=== PATIENT | male | born 2000 | race Caucasian/White ===

== ENCOUNTER 2019-02-07 00:12 | Emergency (ER) | payer MEDICAID ==
[~2019-02-07] VITALS: Ht 170.2 cm; Wt 65.5 kg
[2019-02-07 00:32] VITALS: Ht 170.2 cm; Wt 65.5 kg
--- NOTE | 2019-02-07 01:57 | ERD ---
ER Documentation Chief Complaint Chief Complaint STATES SUICIDAL IDEATION BY CUTTING SELF HPI The patient is a 18-year-old male, presenting to the ER because he has suicidal ideation, plans to cut himself. He denies auditory/visual hallucination, homicidal ideation, denies headache, neck pain, chest pain, dyspnea, abdominal pain, vomiting, dysuria, diarrhea. He does not smoke nor drink or use illicit drug Past medical history: Schizophrenia, ADHD Past surgical history: None ROS All systems reviewed and are negative except as per history of present illness. Allergies Allergies: Coded Allergies: No Known Allergy (Unverified , 02/07/19) Physical Exam Vitals Vital Signs Date Temp Pulse Resp B/P (MAP) Pulse Ox O2 O2 Flow FiO2 Time Delivery Rate 02/07/19 98.2 82 19 107/73 99 02:34 (84) 02/07/19 98.2 69 19 107/ 99 00:32 (84) Physical Exam Const: No acute distress. Head: Atraumatic. Eyes: Normal Conjunctiva. ENT: Normal External Ears, Nose and Mouth. Neck: Full range of motion. No meningismus. Resp: Clear to auscultation bilaterally. Cardio: Regular rate and rhythm. Abd: Soft, non distended, normal bowel sounds, non tender. Skin: No petechiae or rashes. Back: No midline or flank tenderness. Ext: No cyanosis, or edema. Neur: Awake and alert. No focal deficit Psych: Suicidal Results 24 hrs Laboratory Tests Test 02/07/19 03:41 White Blood Count Pending Red Blood Count Pending Hemoglobin Pending Hematocrit Pending Mean Corpuscular Volume Pending Mean Corpuscular Hemoglobin Pending Mean Corpuscular Hemoglobin Concent Pending Red Cell Distribution Width Pending Platelet Count Pending Mean Platelet Volume Pending Procedures/MDM Labs pending MEDICAL MAKING DECISION: The patient is a 18-year-old male, presenting with acute suicidal ideation The differential diagnoses considered include but are not limited to medical noncompliance, decompensated psychiatric illness, anxiety attack, panic attack Departure Diagnosis: Primary Impression: Suicidal ideation Condition: Stable Comments He is cleared for psychiatric evaluation and admission LIANET ZEPEDA MD Feb 07, 2019 01:57
--- NOTE | 2019-02-07 06:38 | PSY ---
Date/Time of Note Date/Time of Note DATE: 02/07/19 TIME: 09:36 Psychiatric Subjective Eval Consent Pt consented to telemedicine: Yes Subjective Evaluation Patient location: emergency Chief Complaint: STATES SUICIDAL IDEATION BY CUTTING SELF History of present illness HPI: 18 yo male with ho psychosis came to ED because he wants to kill himself via cutting himself. He also reports VH of "demons" that are bothering him. He denies drug use. Past Psych HX: + ho psych admits and suicide attempts PMHx: denies nkda Meds: denies MSE: casually groomed, cooperative, somewhat lethargic, decreased prosody of s peech, dysthymic restricted affect, organized, no delusions + VH +SI Imp: 18 yo male acute danger to self 48 yo female acute danger to self, gravely disabled, delirious Full delirium workup including MRI/CT brain/head, rpr tsh, utox infectious wor kup (e.g., UA), cbc lfts nh4 electrolytes Though pt denies SI, that she intentionally overdosed, has impaired reliability, has been using substances, appears depressed, and due to danger of overdose and potential severe physical harm that could have happened, reported Si within hours ago, suggests that there is not enough evidence to suggest that the pt is not an acute risk to self; recommend parallel hx from family to obtain more information about recent mental status and this episode; this will help dete rmine disposition Utox Voluntary psych admit For moderate agitation Zyprexa 5mg po prn For severe agitation chlorpromazine 25mg im prn Medical history Problems Medical Problems: (1) Suicidal ideation Status: Acute Allergies: Coded Allergies: No Known Allergy (Unverified , 02/07/19) Psychiatric Objective Eval Mental Status Examination: Laboratory Results Laboratory Tests Test 02/07/19 03:41 White Blood Count 6.9 10^3/ul Red Blood Count 4.61 10^6/ul Hemoglobin 13.9 g/dl Hematocrit 40.2 % Mean Corpuscular Volume 87.2 fl Mean Corpuscular Hemoglobin 30.2 pg Mean Corpuscular Hemoglobin Concent 34.6 g/dl Red Cell Distribution Width 12.1 % Platelet Count 278 10^3/UL Mean Platelet Volume 10.3 fl Immature Granulocytes % 0.300 % Neutrophils % 55.5 % Lymphocytes % 32.2 % Monocytes % 9.2 % Eosinophils % 2.2 % Basophils % 0.6 % Nucleated Red Blood Cells % 0.0 /100WBC Immature Granulocytes # 0.020 10^3/ul Neutrophils # 3.9 10^3/ul Lymphocytes # 2.2 10^3/ul Monocytes # 0.6 10^3/ul Eosinophils # 0.2 10^3/ul Basophils # 0.0 10^3/ul Nucleated Red Blood Cells # 0.0 10^3/ul Sodium Level 140 mmol/L Potassium Level 3.9 mmol/L Chloride Level 106 mmol/L Carbon Dioxide Level 26 mmol/L Anion Gap 8 Blood Urea Nitrogen 10 mg/dl Creatinine 0.52 mg/dl Est Glomerular Filtrat Rate mL/min > 60 mL/min Glucose Level 101 mg/dl Calcium Level 9.2 mg/dl Total Bilirubin 0.3 mg/dl Direct Bilirubin 0.00 mg/dl Indirect Bilirubin 0.3 mg/dl Aspartate Amino Transf (AST/SGOT) 22 IU/L Alanine Aminotransferase (ALT/SGPT) 20 IU/L Alkaline Phosphatase 86 IU/L Total Protein 6.8 g/dl Albumin 3.8 g/dl Globulin 3.00 g/dl Albumin/Globulin Ratio 1.26 Salicylates Level < 1.0 mg/dl Acetaminophen Level < 10.0 ug/ml Ethyl Alcohol Level < 10.0 mg/dl Assessment and Plan Recommendation/Plan Multiple antipsychotics: No Discharge Disposition: Psychiatric inpatient Legal Status: Voluntary KALEIGHAUDREY LOYOLA Feb 07, 2019 06:38
--- NOTE | 2019-02-07 07:29 | PSY ---
Date/Time of Note Date/Time of Note DATE: 02/07/19 TIME: 10:27 Psychiatric Subjective Eval Consent Pt consented to telemedicine: Yes Subjective Evaluation Patient location: emergency Chief Complaint: STATES SUICIDAL IDEATION BY CUTTING SELF History of present illness This is a corrected note as the previous note had typographical inconsistencies HPI: 18 yo male with ho psychosis came to ED because he wants to kill himself via cutting himself. He also reports VH of "demons" that are bothering him. He denies drug use. Past Psych HX: + ho psych admits and suicide attempts PMHx: denies nkda Meds: denies MSE: casually groomed, cooperative, somewhat lethargic, decreased prosody of speech, dysthymic restricted affect, organized, no delusions + VH +SI Imp: 18 yo male acute danger to self utox voluntary psych admit for moderate agitation zyprexa 5mg po prn for severe agitation chlorpromazine 25mg im prn Medical history Problems Medical Problems: (1) Suicidal ideation Status: Acute Allergies: Coded Allergies: No Known Allergy (Unverified , 02/07/19) Social History Marital status: single Psychiatric Objective Eval Mental Status Examination: Laboratory Results Laboratory Tests Test 02/07/19 03:41 White Blood Count 6.9 10^3/ul Red Blood Count 4.61 10^6/ul Hemoglobin 13.9 g/dl Hematocrit 40.2 % Mean Corpuscular Volume 87.2 fl Mean Corpuscular Hemoglobin 30.2 pg Mean Corpuscular Hemoglobin Concent 34.6 g/dl Red Cell Distribution Width 12.1 % Platelet Count 278 10^3/UL Mean Platelet Volume 10.3 fl Immature Granulocytes % 0.300 % Neutrophils % 55.5 % Lymphocytes % 32.2 % Monocytes % 9.2 % Eosinophils % 2.2 % Basophils % 0.6 % Nucleated Red Blood Cells % 0.0 /100WBC Immature Granulocytes # 0.020 10^3/ul Neutrophils # 3.9 10^3/ul Lymphocytes # 2.2 10^3/ul Monocytes # 0.6 10^3/ul Eosinophils # 0.2 10^3/ul Basophils # 0.0 10^3/ul Nucleated Red Blood Cells # 0.0 10^3/ul Sodium Level 140 mmol/L Potassium Level 3.9 mmol/L Chloride Level 106 mmol/L Carbon Dioxide Level 26 mmol/L Anion Gap 8 Blood Urea Nitrogen 10 mg/dl Creatinine 0.52 mg/dl Est Glomerular Filtrat Rate mL/min > 60 mL/min Glucose Level 101 mg/dl Calcium Level 9.2 mg/dl Total Bilirubin 0.3 mg/dl Direct Bilirubin 0.00 mg/dl Indirect Bilirubin 0.3 mg/dl Aspartate Amino Transf (AST/SGOT) 22 IU/L Alanine Aminotransferase (ALT/SGPT) 20 IU/L Alkaline Phosphatase 86 IU/L Total Protein 6.8 g/dl Albumin 3.8 g/dl Globulin 3.00 g/dl Albumin/Globulin Ratio 1.26 Salicylates Level < 1.0 mg/dl Acetaminophen Level < 10.0 ug/ml Ethyl Alcohol Level < 10.0 mg/dl Assessment and Plan Recommendation/Plan Multiple antipsychotics: No Discharge Disposition: Psychiatric inpatient Legal Status: Voluntary KALEIGH,RAGBuck Feb 07, 2019 07:29
[2019-02-07 11:13] VITALS: BP 116/68; PULSE 88; RESP 19
== END 2019-02-07 11:14 ==
LOC: E/R 00:12
DX: R45.851 Suicidal ideations (principal)
CPT/HCPCS: 80053; 80307; 81003; 85025; Z7502

== ENCOUNTER 2019-02-13 20:49 | Emergency (ER) | payer MEDICAID ==
[~2019-02-13] VITALS: Ht 170.2 cm; Wt 62.1 kg
[2019-02-13 21:08] VITALS: Ht 170.2 cm; Wt 62.1 kg
--- NOTE | 2019-02-13 23:11 | ERD ---
ER Documentation Chief Complaint Chief Complaint suicidal ideations, noted with superficial multiple abrasions left arm HPI 18-year-old male who presents with suicidal ideation for unknown duration of time. The patient has subacute superficial abrasions and cuts to the left forearm, volar aspect. None are acute. The patient describes suicidal thoughts, no active plan. He feels like he needs to be hospitalized. He denies any active drugs or alcohol. ROS All systems reviewed and are negative except as per history of present illness. Medications Home Meds Unable to Obtain Active Prescriptions or Reported Meds Allergies Allergies: Coded Allergies: No Known Allergy (Unverified , 02/07/19) PMhx/Soc Medical and Surgical Hx: pt denies Surgical Hx History of Surgery: No Hx Psychiatric Problems: Yes (DEPRESSION) Hx Alcohol Use: Yes Hx Substance Use: No Hx Tobacco Use: No Smoking Status: Never smoker FmHx Family History: No diabetes Physical Exam Vitals Vital Signs Date Temp Pulse Resp B/P (MAP) Pulse Ox O2 O2 Flow FiO2 Time Delivery Rate 02/13/19 98.9 105 20 152/89 98 21:08 (110) Physical Exam General: Well developed, well nourished, no acute distress Head: Normocephalic, atraumatic. Eyes: Pupils equally reactive, EOM intact ENT: Moist mucous membranes Neck: Supple, no lymphadenopathy Respiratory: Lungs clear bilaterally, no distress Cardiovascular: RRR, no murmurs, rubs, or gallops Abdominal: Soft, non-tender, non-distended, no peritoneal signs : Deferred MSK: No edema, no unilateral swelling, 5/5 strength Neurologic: Alert and oriented, moving all extremities, normal speech, no focal weakness, no cerebellar signs Skin: Subacute lacerations and abrasions to the volar aspect of the left forearm, no active bleeding or evidence of infection Psych: Depression with suicidal ideation Result Diagram: 02/13/19 2214 02/13/19 221 Results 24 hrs Laboratory Tests Test 02/13/19 22:14 02/13/19 22:15 White Blood Count 9.1 10^3/ul Red Blood Count 4.61 10^6/ul Hemoglobin 13.7 g/dl Hematocrit 39.9 % Mean Corpuscular Volume 86.6 fl Mean Corpuscular Hemoglobin 29.7 pg Mean Corpuscular Hemoglobin Concent 34.3 g/dl Red Cell Distribution Width 12.2 % Platelet Count 313 10^3/UL Mean Platelet Volume 9.7 fl Immature Granulocytes % 0.300 % Neutrophils % 58.1 % Lymphocytes % 29.4 % Monocytes % 10.9 % Eosinophils % 0.9 % Basophils % 0.4 % Nucleated Red Blood Cells % 0.0 /100WBC Immature Granulocytes # 0.030 10^3/ul Neutrophils # 5.3 10^3/ul Lymphocytes # 2.7 10^3/ul Monocytes # 1.0 10^3/ul Eosinophils # 0.1 10^3/ul Basophils # 0.0 10^3/ul Nucleated Red Blood Cells # 0.0 10^3/ul Sodium Level 140 mmol/L Potassium Level 3.6 mmol/L Chloride Level 105 mmol/L Carbon Dioxide Level 26 mmol/L Anion Gap 9 Blood Urea Nitrogen 14 mg/dl Creatinine 0.67 mg/dl Est Glomerular Filtrat Rate mL/min > 60 mL/min Glucose Level 97 mg/dl Calcium Level 9.8 mg/dl Total Bilirubin 0.3 mg/dl Direct Bilirubin 0.00 mg/dl Indirect Bilirubin 0.3 mg/dl Aspartate Amino Transf (AST/SGOT) 30 IU/L Alanine Aminotransferase (ALT/SGPT) 15 IU/L Alkaline Phosphatase 90 IU/L Total Protein 7.2 g/dl Albumin 4.1 g/dl Globulin 3.10 g/dl Albumin/Globulin Ratio 1.32 Ethyl Alcohol Level < 10.0 mg/dl Procedures/MDM EKG/DIAGNOSTIC IMAGING: None Required LAB INTERPRETATION: No acute process MEDICAL DECISION MAKING: The patient's presentation is consistent with underlying psychiatric illness and likely exacerbation of this illness and/or psychosis. I have a much lower clinical concern for delirium or acute organic pathology such as toxicologic, metabolic, ischemic, intracranial hemorrhage, infectious process. However, we must rule this out prior to relying a diagnosis of underlying psychiatric illness. The patient's workup will include medical screening examination and appropriate laboratory testing. If the patient's medical examination does not reveal acute organic pathology the patient will be medically cleared for psychiatric evaluation. ER COURSE: The patient's evaluation does not suggest an acute organic pathology. At this time I believe the patient's presentation is very consistent with underlying psychiatric illness. The patient is medically cleared for psychiatric evaluation. CONSULTATION: Psychiatric consultation: [facility] medicine psychiatry has been consulted on this case to evaluate the patient for possible acute psychiatric illness that would require inpatient hospitalization. DISPOSITION PLAN: Pending psychiatric evaluation Departure Diagnosis: Primary Impression: Suicidal ideation Condition: Stable ELOY GRIGSBY MD Feb 13, 2019 23:11
--- NOTE | 2019-02-14 01:45 | PSY ---
Date/Time of Note Date/Time of Note DATE: 02/14/19 TIME: 01:34 Psychiatric Subjective Eval Consent Pt consented to telemedicine: Yes Subjective Evaluation Patient location: emergency Chief Complaint: suicidal ideations, noted with superficial multiple abrasions left arm History of present illness He stated he felt like hurting himself for "a while." He stated he ended up cutting his wrist a couple of hours ago. Per ED notes he has superficial abrasions. He stated he is not sure why he cut his wrist and stated he was hearing "things" to cut himself for years. He was quite vague in many of his responses stating "a while" pr "a long time" for many responses and would only stated he was hearing "a lot of things" when asked about hallucinations. He stated his mood has been "manic" and "all over the place." He stated he sleeps fine at night, however, and has a normal appetite. He stated he "sometimes" has thoughts about harming others but not currently. He continued to stated r epeatedly that he was thinking of "hurting himself." I tried to clarify if he was thinking of non-suicidal self injury or suicidal actions. He again gave a vague response stating, "I don't know. It changes. Sometimes." Past psychiatric history Stated he was released from the hospital a few days ago and had been given Wellbutrin in the hospital but stopped it when he was discharged because he didn't get a prescription. Stated he was diagnosed with "depression... 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) Substance abuse history: No Prior substance abuse treatmen: No Social History Marital status: single Level of education: Graduated HS DPA/Conservatorship: No Occupation/Correction: No job currently Psychiatric Objective Eval Physical Examination: Sleep: Adequate Appetite: Adequate Mental Status Examination: Appearance: Groomed Eye Contact: Fair Behavior: Guarded (Vague in many responses) Speech: Clear AFFECT: Appropriate Mood: Other (Stated he has a "manic" mood but didn't appear manic) Though Process: Linear Thought Content: Normal Suicidal: Yes (Repeatedly said he wanted to "hurt" himself) Homicidal: No On 72 hour hold: No Orientation: x4 Cognition: Alert Insight: Impared Judgement: Impared Attention Span: Intact Laboratory Results Laboratory Tests Test 02/13/19 22:14 02/13/19 22:15 White Blood Count 9.1 10^3/ul Red Blood Count 4.61 10^6/ul Hemoglobin 13.7 g/dl Hematocrit 39.9 % Mean Corpuscular Volume 86.6 fl Mean Corpuscular Hemoglobin 29.7 pg Mean Corpuscular Hemoglobin Concent 34.3 g/dl Red Cell Distribution Width 12.2 % Platelet Count 313 10^3/UL Mean Platelet Volume 9.7 fl Immature Granulocytes % 0.300 % Neutrophils % 58.1 % Lymphocytes % 29.4 % Monocytes % 10.9 % Eosinophils % 0.9 % Basophils % 0.4 % Nucleated Red Blood Cells % 0.0 /100WBC Immature Granulocytes # 0.030 10^3/ul Neutrophils # 5.3 10^3/ul Lymphocytes # 2.7 10^3/ul Monocytes # 1.0 10^3/ul Eosinophils # 0.1 10^3/ul Basophils # 0.0 10^3/ul Nucleated Red Blood Cells # 0.0 10^3/ul Sodium Level 140 mmol/L Potassium Level 3.6 mmol/L Chloride Level 105 mmol/L Carbon Dioxide Level 26 mmol/L Anion Gap 9 Blood Urea Nitrogen 14 mg/dl Creatinine 0.67 mg/dl Est Glomerular Filtrat Rate mL/min > 60 mL/min Glucose Level 97 mg/dl Calcium Level 9.8 mg/dl Total Bilirubin 0.3 mg/dl Direct Bilirubin 0.00 mg/dl Indirect Bilirubin 0.3 mg/dl Aspartate Amino Transf (AST/SGOT) 30 IU/L Alanine Aminotransferase (ALT/SGPT) 15 IU/L Alkaline Phosphatase 90 IU/L Total Protein 7.2 g/dl Albumin 4.1 g/dl Globulin 3.10 g/dl Albumin/Globulin Ratio 1.32 Urine Opiates Screen Negative Urine Barbiturates Negative Urine Amphetamines Screen Negative Urine Benzodiazepines Screen Negative Urine Cocaine Screen Negative Urine Cannabinoids Negative Ethyl Alcohol Level < 10.0 mg/dl Assessment and Plan Assessment/Diagnosis Diagnosis Unspecified Mood Disorder. Rule out Personality Disorder. Recommendation/Plan Multiple antipsychotics: No Discharge Disposition: Psychiatric inpatient Legal Status: Voluntary RAVI JACOB MD Feb 14, 2019 01:44
--- NOTE | 2019-02-14 15:02 | PSY ---
Date/Time of Note Date/Time of Note DATE: 02/14/19 TIME: 17:54 Psychiatric Subjective Eval Consent Pt consented to telemedicine: Yes Subjective Evaluation Patient location: emergency Chief Complaint: suicidal ideations, noted with superficial multiple abrasions left arm Reason for consult: SUICIDAL IDEATION History of present illness HPI: 18 yo male, seen early by Dr. Jacob, per his note, "He stated he felt like hurting himself for "a while." He stated he ended up cutting his wrist a couple of hours ago. Per ED notes he has superficial abrasions. He stated he is not sure why he cut his wrist and stated he was hearing "things" to cut himself for years. He was quite vague in many of his responses stating "a while" pr "a long time" for many responses and would only stated he was hearing "a lot of things" when asked about hallucinations. He stated his mood has been "manic" and "all over the place." He stated he sleeps fine at night, however, and has a normal appetite. He stated he "sometimes" has thoughts about harming others but not currently. He continued to stated repeatedly that he was thinking of "hurting himself." I tried to clarify if he was thinking of non-suicidal self injury or suicidal actions. He again gave a vague response stating, "I don't know. It changes. Sometimes."" spoke with pt. He reported as above. Namely, he has had waxing and waning SI. Reports he has been cutting on and off and came to Ed to get his cuts clean. Reports he last had SI yesterday and was drinking yesterday and also cut self yesterday. He states that he brought himself to the ED as he felt that he need to be inpatient as he needs that sometimes to "get away." Reports he left psych hospital 3 days ago where he presented for si. Denies Ah now, denies other drug use. Pt had signed to go to a psych hospital voluntarily and the ambulance cameto take pt. Then, when he heard that the hospital was somewhat farther away than he had anticipated, he decided that he no longer wanted to go to a psych hospital. Past Psych Hx: + ho psych admits and suicide attempts PMHx: denies Meds: wellbutrin nkda MSE: casually groomed, cooperative, his left arm has numerous cuts all over arm at different stages of healing slightly decreased prosody of speech, dysthymic, restricted affect organized, minimizing denies delusions or avh denies si now, impaired insight/reliability/impulse control Imp: 18 yo male in the ED after suicide attempt (currently the standard is that if self harm occurs in context of SI, it is considered a suicide attempt). In addition, he has been using drugs, was just released from a hospital where he was admitted with SI, appears depressed, just tried to kill self, and admitted his need to be in a hospital. This suggests that there is not enough evidence to suggest pt is not acute risk to self recommend inpatient hospitalization, 5150 for moderate agitation zyprexa 5mg po prn for severe agitation chlorpromazine 25mg im prn Hospitalization: yes Medical history Problems Medical Problems: (1) Suicidal ideation Status: Acute (2) Suicidal ideation Status: Acute Allergies: Coded Allergies: No Known Allergy (Unverified , 02/07/19) Social History Marital status: single Level of education: Graduated HS DPA/Conservatorship: No Occupation/Half-Way: [employer] BY [employer] JACOB Psychiatric Objective Eval Mental Status Examination: Laboratory Results Laboratory Tests Test 02/13/19 22:14 02/13/19 22:15 White Blood Count 9.1 10^3/ul Red Blood Count 4.61 10^6/ul Hemoglobin 13.7 g/dl Hematocrit 39.9 % Mean Corpuscular Volume 86.6 fl Mean Corpuscular Hemoglobin 29.7 pg Mean Corpuscular Hemoglobin Concent 34.3 g/dl Red Cell Distribution Width 12.2 % Platelet Count 313 10^3/UL Mean Platelet Volume 9.7 fl Immature Granulocytes % 0.300 % Neutrophils % 58.1 % Lymphocytes % 29.4 % Monocytes % 10.9 % Eosinophils % 0.9 % Basophils % 0.4 % Nucleated Red Blood Cells % 0.0 /100WBC Immature Granulocytes # 0.030 10^3/ul Neutrophils # 5.3 10^3/ul Lymphocytes # 2.7 10^3/ul Monocytes # 1.0 10^3/ul Eosinophils # 0.1 10^3/ul Basophils # 0.0 10^3/ul Nucleated Red Blood Cells # 0.0 10^3/ul Sodium Level 140 mmol/L Potassium Level 3.6 mmol/L Chloride Level 105 mmol/L Carbon Dioxide Level 26 mmol/L Anion Gap 9 Blood Urea Nitrogen 14 mg/dl Creatinine 0.67 mg/dl Est Glomerular Filtrat Rate mL/min > 60 mL/min Glucose Level 97 mg/dl Calcium Level 9.8 mg/dl Total Bilirubin 0.3 mg/dl Direct Bilirubin 0.00 mg/dl Indirect Bilirubin 0.3 mg/dl Aspartate Amino Transf (AST/SGOT) 30 IU/L Alanine Aminotransferase (ALT/SGPT) 15 IU/L Alkaline Phosphatase 90 IU/L Total Protein 7.2 g/dl Albumin 4.1 g/dl Globulin 3.10 g/dl Albumin/Globulin Ratio 1.32 Urine Opiates Screen Negative Urine Barbiturates Negative Urine Amphetamines Screen Negative Urine Benzodiazepines Screen Negative Urine Cocaine Screen Negative Urine Cannabinoids Negative Ethyl Alcohol Level < 10.0 mg/dl Assessment and Plan Recommendation/Plan Multiple antipsychotics: No Discharge Disposition: Psychiatric inpatient Legal Status: Place involuntary hold AUDREY FARRIS Feb 14, 2019 15:02
[2019-02-14] MEDS ORDERED: LORAZEPAM 2 MG INJ IV ONE (17:00)
[2019-02-14] MEDS ORDERED: LORAZEPAM 1 MG TAB PO ONE (17:00)
[2019-02-14] MEDS ORDERED: LORAZEPAM 2 MG INJ IM ONE (21:00)
[2019-02-14] MEDS ORDERED: OLANZAPINE (ODT) 5 MG TAB ODT STA (22:00)
[2019-02-15] MEDS ORDERED: DIPHENHYDRAMINE 50 MG CAP PO ONE ×3 (01:00→21:00)
[2019-02-15] MEDS ORDERED: LORAZEPAM 1 MG TAB PO ONE (21:00)
--- NOTE | 2019-02-16 06:47 | PSY ---
Date/Time of Note Date/Time of Note DATE: 02/16/19 TIME: 06:46 Psychiatric Subjective Eval Consent Pt consented to telemedicine: Yes Subjective Evaluation Patient location: emergency Chief Complaint: suicidal ideations, noted with superficial multiple abrasions left arm Reason for consult: Behavioral Hospitalization: Suicidal Attempt(s) Medical history Problems Medical Problems: (1) Suicidal ideation Status: Acute (2) Suicidal ideation Status: Acute Allergies: Coded Allergies: No Known Allergy (Unverified , 02/07/19) Social History Marital status: single Level of education: HS graduate DPA/Conservatorship: No Occupation/Group Home: [employer] BY DR JACOB Assessment and Plan Recommendation/Plan Discharge Disposition: Psychiatric inpatient Legal Status: Continue involuntary hold Assessment Additional comments: IDENTIFYING INFORMATION: 18 year old Male patient who is currently located at the hospital and for whom psychiatric consultation was requested. SOURCES OF INFORMATION: The patient who appears to be unreliable and the medical records; the nursing staff. CHIEF COMPLAINT: "I cut myself". HISTORY OF PRESENT ILLNESS: The patient was interviewed via telemedicine in the presence of and under the supervision of nursing staff of the hospital. The consent to conducting this interview via telemedicine was obtained by the nursing staff at the hospital. The patient reports having cut himself because he is feeling suicidal . Admits to of the devil, who is after him. The patient denies using alcohol heavily or regularly. The patient denies using any other substances. In terms of past psychiatric history, the patient reports having a history of past psychiatric hospitalizations. The patient reports having a history of past suicide attempts. Past medication trials: ativan, wellbutrin, seroquel. PAST MEDICAL HISTORY: none. CURRENT MEDICATIONS: none. ALLERGIES TO MEDICATIONS: NKDA. LABORATORY TESTS: CBC with hemoglobin of 13.7, hematocrit 39.9, CMP unremarkable, UDS negative, alcohol not detected. SOCIAL HISTORY: lives with mom, single, no kids, not employed, on disability. REVIEW OF SYSTEMS: Constitutional (e.g., fever, weight loss): negative; Eyes, Ears, Nose, Mouth, Throat: negative; Cardiovascular: negative; Respiratory: negative; Gastrointestinal: negative; Genitourinary: negative; Musculoskeletal: negative; Integumentary (skin and/or breast): negative; Neurological: negative; Psychiatric: as per HPI; Endocrine: negative; Hematologic/Lymphatic: negative; Allergic/Immunologic: negative. MENTAL STATUS EXAMINATION: General Appearance and Behavior: Calm, cooperative with the interview, pleasant with the current interviewer, makes fair eye contact, fairly groomed, no abnormal movements noted, Speech: Regular rate, regular rhythm, normal latency, normal volume, somewhat decreased amount, Flow of thought: sequential, logical, goal-directed, Content of thought: + auditory hallucinations, no visual hallucinations, no delusions, positive for suicidal ideation; no homicidal ideation, Mood: "depressed", Affect: dysthymic, dysphoric, not reactive, Attention: normal based on the interview, Insight: fair, Judgment: poor, Memory: normal based on the interview, Sensorium: alert and oriented to person, place and date. ASSESSMENT: The patient's presentation and history are consistent with the diagnosis of unspecified psychotic disorder. The patient presents with depressive and psychotic symptoms in the context of medication noncompliance, psychosocial stressors. No evidence of nora, hypomania on exam. PLAN: - Medication management: Would start Wellbutrin extended release 150 mg every morning, Seroquel 50 mg at bedtime. Would start haloperidol 5 mg IM PRN severe agitation q4 hours. Would start diphenhydramine 50 mg IM PRN severe agitation q4 hours. Would start lorazepam 2 mg IM PRN severe agitation q4 hours Will defer to the inpatient psychiatry team for other medication changes. - Labs: No other laboratory tests are needed at this time. - Psychotherapy: Provided supportive psychotherapy and psychoeducation. - Disposition: Would recommend involuntary admission to the inpatient psychiatric unit given the severity of the patient's psychiatric condition and the fact that the patient is an imminent danger to self and/or others so long as the patient has been cleared medically for admission to psychiatry. Inpatient psychiatric admission is at this time the least restrictive environment where the patient can receive the psychiatric care that is needed. Would place on suicide precautions. The patient fulfills criteria for being placed on an involuntary hold for being a danger to self due to a psychiatric disorder. Of note, the patient is in agreement with the above plan. I called the emergency room physician who is taking care of the patient to discuss about the above plan but the emergency room physician is not available at this time. MIAH BULL MD Feb 16, 2019 06:47
[2019-02-16] MEDS ORDERED: LORAZEPAM 1 MG TAB PO ONE (08:30)
[2019-02-16] MEDS: BUPROPION (XL) 150 MG TAB PO SCH (10:27)
[2019-02-16] MEDS ORDERED: QUETIAPINE 100 MG TAB PO SCH (21:00)
[2019-02-16] MEDS ORDERED: ALPR2TAB PO (21:48)
--- NOTE | 2019-02-17 05:43 | EN ---
Date/Time of Note Date/Time of Note DATE: 02/17/19 TIME: 05:43 ER Progress Note Psychiatric Observation Note: Indication: Psychosis Duration: Greater than 22 hours Family history: As documented in original HPI The patient was observed with serial exams over the above timeframe. The patient continued to be well-appearing, and observation continued without complication. All other needs have been met during emergency department stay. Routine psychiatric medications ordered: Still pending psychiatric placement Hold status: Patient is still pending placement. Patient was docile during my shift. Placement status: Pending evaluation KOKI CAMACHO Feb 17, 2019 05:43
[2019-02-17] MEDS: BUPROPION (XL) 150 MG TAB PO SCH (08:53)
[2019-02-17 09:53] VITALS: BP 117/63; PULSE 98; RESP 19
== END 2019-02-17 10:20 | disposition home or self-care (01) ==
LOC: E/R 20:49
DX: R45.851 Suicidal ideations (principal); S50.812A Abrasion of left forearm, initial encounter; R40.2142 Coma scale, eyes open, spontaneous, at arrival to emergency department; R40.2362 Coma scale, best motor response, obeys commands, at arrival to emergency department; R40.2252 Coma scale, best verbal response, oriented, at arrival to emergency department; X58.XXXA Exposure to other specified factors, initial encounter; Y92.9 Unspecified place or not applicable
CPT/HCPCS: 36415; 80053; 80307; 85025; 96372; J2060; Z7502; Z7610

== ENCOUNTER 2019-05-04 02:46 | Emergency (ER) | payer MEDICAID ==
[~2019-05-04] VITALS: Ht 172.7 cm; Wt 68.0 kg
[~2019-05-04 02:46] MED LIST: ALPR2TAB PO
[2019-05-04 02:49] VITALS: Ht 172.7 cm; Wt 68.0 kg
[2019-05-04 07:21] VITALS: BP 118/79; PULSE 95; RESP 18
[2019-05-04] MEDS ORDERED: IBUPROFEN 800 MG TAB PO ONE (09:30)
== END 2019-05-04 10:30 ==
LOC: E/R 02:46
DX: R45.851 Suicidal ideations (principal); R40.2142 Coma scale, eyes open, spontaneous, at arrival to emergency department; R40.2362 Coma scale, best motor response, obeys commands, at arrival to emergency department; R40.2252 Coma scale, best verbal response, oriented, at arrival to emergency department; F17.210 Nicotine dependence, cigarettes, uncomplicated
CPT/HCPCS: 36415; 73562; 80053; 80307; 81003; 85025; Z7502; Z7610